=== PATIENT | male | born 1960 | race Caucasian/White ===

== ENCOUNTER 2019-01-28 21:32 | Emergency (ER) | payer BC, SELFPAY ==
[2019-01-28 21:36] VITALS: RESP 16
--- NOTE | 2019-01-29 00:25 | ED PDOC ---
HPI: Seizure Time Seen by Provider: 01/28/19 22:15 Chief Complaint (Nursing): Seizure Chief Complaint (Provider): Seizure History Per: Patient History/Exam Limitations: no limitations Number Of Seizures: One Length Of Seizures (Duration): Seconds Additional History Per: Family Additional Complaint(s): 58 year old male with pmhx with HTN presents to the ED with family for an evaluation of possible seizure onset today. Patient states he just remembers his family shaking him to wake him up. As per , patient was sitting on the couch and slumped over and started to shake for a few seconds. Otherwise, patient and family members deny confusion, tongue bite, loss of urine or epilepsy. PMD: Nam Devine Past Medical History Reviewed: Historical Data, Nursing Documentation, Vital Signs Vital Signs: Last Vital Signs Temp 99.2 F 01/28/19 21:35 Pulse 86 01/28/19 21:35 Resp 16 01/28/19 21:35 BP 143/86 01/28/19 21:35 Pulse Ox 97 01/28/19 21:35 Primary Care Provider: FAMILY PROVIDER,NO - Medical History PMH: Anemia, HTN, Chronic Kidney Disease Denies: HIV - Surgical History Surgical History: Cholecystectomy - Family History Family History: States: Unknown Family Hx - Immunization History Hx Tetanus Toxoid Vaccination: No Hx Influenza Vaccination: No Hx Pneumococcal Vaccination: No - Home Medications Home Medications: Ambulatory Orders Medication Instructions Recorded Docusate Sodium [Colace] 100 mg PO DAILY #10 sgl 02/25/14 Iron 02/25/14 Acetaminophen/Butalbital/Caf 1 tab PO Q4 PRN #0 tab 04/24/15 [Fioricet] Aspirin [Aspirin EC] 81 mg PO DAILY #30 ect 04/24/15 Ibuprofen 600 mg PO TID PRN #90 tab 04/24/15 Metoprolol Tartrate 50 mg PO BID #60 tab 04/24/15 Valsartan 80 mg PO DAILY #30 tab 04/24/15 - Allergies Allergies/Adverse Reactions: Allergies Allergy/AdvReac Type Severity Reaction Status Date / Time No Known Allergies Allergy Verified 01/28/19 21:33 Review of Systems ROS Statement: Except As Marked, All Systems Reviewed And Found Negative Constitutional: Negative for: Fever ENT: Negative for: Other (tongue bite) Genitourinary Male: Negative for: Incontinence Neurological: Positive for: Seizures. Negative for: Confusion, Other (epilepsy) Physical Exam - Reviewed Nursing Documentation Reviewed: Yes Vital Signs Reviewed: Yes - Physical Exam Appears: Positive for: Well, Non-toxic, No Acute Distress Head Exam: Positive for: ATRAUMATIC, NORMAL INSPECTION, NORMOCEPHALIC Skin: Positive for: Normal Color, Warm, Dry. Negative for: Rash Eye Exam: Positive for: EOMI, Normal appearance, PERRL ENT: Positive for: Normal ENT Inspection Neck: Positive for: Normal, Painless ROM, Supple. Negative for: Decreased ROM Cardiovascular/Chest: Positive for: Regular Rate, Rhythm. Negative for: Murmur Respiratory: Positive for: Normal Breath Sounds. Negative for: Decreased Breath Sounds, Wheezing, Respiratory Distress Gastrointestinal/Abdominal: Positive for: Normal Exam, Soft. Negative for: Tenderness, Guarding, Rebound Back: Positive for: Normal Inspection. Negative for: L CVA Tenderness, R CVA Tenderness Extremity: Positive for: Normal ROM. 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 Negative for: Mood/Affect, Lethargic, Listless, Facial Droop - Laboratory Results Result Diagrams: 01/29/19 00:25 01/29/19 00:25 - ECG O2 Sat by Pulse Oximetry: 97 (RA) Pulse Ox Interpretation: Normal Medical Decision Making Medical Decision Making: Time: 2237 Impression: workup for seizure vs syncope Plan: Venous blood gas shock panel Head w/o contrast CT BMP CPK Troponin CBC w/ differential PTT Prothrombin time Chest portable [RAD] Re-evaluation 0043 EXAM: CT Head without Intravenous Contrast. CLINICAL HISTORY: SYNCOPE AND SEIZURE TECHNIQUE: Axial computed tomography images of the head/brain without intravenous contrast. 894.45 mGy-cm COMPARISON: None provided. FINDINGS: BRAIN No acute intraparenchymal hemorrhage. No mass lesion. No CT evidence for acute territorial infarct. No midline shift or extra-axial collections. VENTRICLES: No hydrocephalus. ORBITS: The orbits are unremarkable. SINUSES AND MASTOIDS: The paranasal sinuses and mastoid air cells are clear. BONES: No fracture. SOFT TISSUES: Unremarkable. IMPRESSION: No acute intracranial abnormality. Electronically signed on January 29, 2019 12:43:01 AM EDT by: Mohan Martínez M.D., M.B.A., Certified By ABR [id number] Discussed need for admission with patient and he wants to sign out AMA. Return premisses discussed Patient does follow up with a neurologist radiculopathy Scribe Attestation: Documented by Nasrin Palacios, acting as a scribe for Catherine Rosenberg MD Provider Scribe Attestation: All medical record entries made by the Scribe were at my direction and personally dictated by me. I have reviewed the chart and agree that the record accurately reflects my personal performance of the history, physical exam, medical decision making, and the department course for this patient. I have also personally directed, reviewed, and agree with the discharge instructions and disposition. Disposition - Clinical Impression Clinical Impression: Atypical seizure - Patient ED Disposition Is Patient to be Admitted: No - Disposition Referrals: Michelle Bai MD [Medical Doctor] - Disposition: Against Medical Advice Disposition Time: 01:46 Condition: GUARDED Additional Instructions: Follow up with neurologist in one to three days. Return to the emergency department immediately if symptoms worsen or if new symptoms develop. Instructions: Seizures, Adult (DC) Forms: [employer] (Yakut), [employer] (Palestinian) Print Language: SWEDISH Against Medical Advice - AMA Patient Left Against Medical Advice: The patient declines admission to the hospital and wishes to leave the Emergency Department. This action is against my medical advice. This decision was made with informed refusal. The patient was told that admission to the hospital is necessary. Explanation of the reasons why were discussed. The risks of leaving were explained to the patient and include, but are not limited to, worsening of known or currently unknown conditions, permanent disability and from undiagnosed or untreated conditions. The patient has the capacity to make this informed decision and understands my explanation of the current medical problem and risks of leaving. The patient voluntarily accepts these risks and signed an AMA form documenting our conversation. The patient was given the opportunity to ask questions and reconsider. The patient was encouraged to return to the Emergency Department at any time for further care.
[2019-01-29 00:28] LABS: BASO % 0.7 % (0.0-2.0); EOS # 0.1 K/uL (0.0-0.7); EOS % 1.6 % (0.0-4.0); HEMOGLOBIN 13.1 g/dL (12.0-18.0); LYMPH # 1.4 K/uL (1.0-4.3); LYMPH % 20.5 % (20.0-40.0); MEAN CELL VOLUME 80.5 fl (80.0-94.0); MEAN CORPUSCULAR HEMOGLOBIN 25.9 pg (27.0-31.0); MEAN CORPUSCULAR HGB CONC 32.2 g/dL (33.0-37.0); MEAN PLATELET VOLUME 8.4 fl (7.2-11.7); MONO # 0.7 K/uL (0.0-0.8); MONO % 10.6 % (0.0-10.0); NEUT # 4.6 K/uL (1.8-7.0); NEUT % 66.6 % (50.0-75.0); RBC 5.05 Mil/uL (4.40-5.90); RED CELL DISTRIBUTION WIDTH 15.8 % (11.5-14.5); WHITE BLOOD COUNT 6.9 K/uL (4.8-10.8)
[2019-01-29 00:35] LABS: PROTHROMBIN TIME 11.4 Seconds (9.8-13.1)
[2019-01-29 00:36] LABS: BLOOD UREA NITROGEN 35 mg/dl (9-20); CALCIUM 8.7 mg/dL (8.4-10.2); GFR NON-AFRICAN AMERICAN 15
[2019-01-29 00:38] LABS: PARTIAL THROMBOPLASTIN TIME 34.8 Seconds (25.6-37.1)
[2019-01-29 00:47] LABS: VENOUS BLOOD GAS BASE EXCESS -0.2 mmol/L (0.0-2.0); VENOUS BLOOD GAS PCO2 41 mmHg (40-60); VENOUS BLOOD GAS PO2 36 mm/Hg (30-55); VENOUS BLOOD PH 7.39 (7.32-7.43)
[2019-01-29 02:32] VITALS: BP 137/77; PULSE 73; TEMP 99.3; O2SAT 95
--- NOTE | 2019-01-29 07:18 | CT ---
Date of service: 01/28/2019 PROCEDURE: CT HEAD WITHOUT CONTRAST. HISTORY: syncope vs seizure COMPARISON: Comparison is made with the previous study dated 04/20/2015. TECHNIQUE: Axial computed tomography images were obtained through the head/brain without intravenous contrast. Radiation dose: Total exam DLP = 894.45 mGy-cm. This CT exam was performed using one or more of the following dose reduction techniques: Automated exposure control, adjustment of the mA and/or kV according to patient size, and/or use of iterative reconstruction technique. FINDINGS: HEMORRHAGE: No intracranial hemorrhage. BRAIN: No mass effect or edema. No atrophy or chronic microvascular ischemic changes. VENTRICLES: Unremarkable. No hydrocephalus. CALVARIUM: Unremarkable. PARANASAL SINUSES: Unremarkable as visualized. No significant inflammatory changes. MASTOID AIR CELLS: Unremarkable as visualized. No inflammatory changes. OTHER FINDINGS: None. IMPRESSION: No evidence of acute intracranial hemorrhage mass effect or midline shift. Preliminary report was submitted by [facility] Radiology contains concordant findings.
--- NOTE | 2019-01-29 11:16 | RAD ---
Date of service: 01/28/2019 HISTORY: possible admission COMPARISON: 04/22/2015. FINDINGS: LUNGS: No active pulmonary disease. PLEURA: No significant pleural effusion identified, no pneumothorax apparent. CARDIOVASCULAR: No atherosclerotic calcification present No radiographic findings to suggest acute or significant cardiovascular disease. OSSEOUS STRUCTURES: No significant abnormalities. VISUALIZED UPPER ABDOMEN: Normal. OTHER FINDINGS: None. IMPRESSION: No active disease. No significant interval change compared to the prior examination(s).
== END 2019-01-29 02:25 | disposition home or self-care (01) ==
LOC: H.ER 21:32
DX: R56.9 Unspecified convulsions (principal); Z79.82 Long term (current) use of aspirin; I12.9 Hypertensive chronic kidney disease with stage 1 through stage 4 chronic kidney disease, or unspecified chronic kidney disease